=== PATIENT | female | born 1990 | race Caucasian/White ===

== ENCOUNTER 2018-01-17 07:23 | Emergency (ER) | payer OTHER ==
[~2018-01-17] VITALS: Ht 152.4 cm; Wt 71.4 kg
[2018-01-17 07:31] VITALS: Ht 152.4 cm; Wt 71.4 kg
[2018-01-17 08:53] LABS: BASOPHIL % 0.3 % (0-2); PLATELET COUNT 308 x10^3mcL (130-400); RED CELL DISTRIBUTION WIDTH 13.8 % (11.5-14.5)
[2018-01-17 08:54] LABS: CARBON DIOXIDE 26.7 mmol/L (21-32); CHLORIDE SERUM 106 mmol/L (98-107); CREATININE SERUM 0.7 mg/dL (0.6-1.0); GFR1 > 60 mL/min; GLUCOSE SERUM 103 mg/dL (74-106); POTASSIUM SERUM 3.7 mmol/L (3.5-5.1); SODIUM SERUM 141 mmol/L (136-145)
[2018-01-17 08:58] LABS: ALKALINE PHOSPHATASE 50 U/L (46-116); ALT/SGPT 28 U/L (14-59); AMYLASE 54 U/L (25-115); AST/SGOT 18 U/L (15-37); BILIRUBIN TOTAL 0.4 mg/dL (0.20-1.00); LIPASE 80 IU/L (73-393); TOTAL PROTEIN, SERUM 6.6 g/dL (6.4-8.2)
[2018-01-17 09:21] LABS: microscopic required? YES; urine erythrocyte 1+ (NEGATIVE)
[2018-01-17 10:16] VITALS: BP 111/71
== END 2018-01-17 10:16 | disposition home or self-care (01) ==
LOC: ED 07:23
PROVIDERS: Specialist
DX: O26.832 Pregnancy related renal disease, second trimester (principal); N23 Unspecified renal colic; Z3A.19 19 weeks gestation of pregnancy
CPT/HCPCS: J2550; J7030

== ENCOUNTER 2019-06-21 04:23 | Emergency (ER) | payer OTHER ==
[~2019-06-21] VITALS: Ht 152.4 cm; Wt 68.9 kg
[2019-06-21 04:26] VITALS: Ht 152.4 cm; Wt 68.9 kg
[2019-06-21 06:29] VITALS: BP 107/70
== END 2019-06-21 07:31 | disposition home or self-care (01) ==
LOC: ED 04:23
DX: N13.2 Hydronephrosis with renal and ureteral calculous obstruction (principal)
CPT/HCPCS: J1885; J2405

== ENCOUNTER 2019-08-13 16:20 | Emergency (ER) | payer OTHER ==
[~2019-08-13] VITALS: Ht 152.4 cm; Wt 68.5 kg
[2019-08-13 16:23] VITALS: BP 109/84; Ht 152.4 cm; Wt 68.5 kg
[2019-08-13 17:01] LABS: UA SPECIFIC GRAVITY >=1.030 (1.005-1.035); microscopic required? YES; urine erythrocyte 3+ (NEGATIVE)
[2019-08-13 17:05] LABS: BASOPHIL % 0.8 % (0-2); PLATELET COUNT 351 x10^3mcL (130-400); RED CELL DISTRIBUTION WIDTH 12.8 % (11.5-14.5)
[2019-08-13 17:08] LABS: CALCIUM 8.1 mg/dL (8.5-10.1); CARBON DIOXIDE 26.9 mmol/L (21-32); CHLORIDE SERUM 104 mmol/L (98-107); CREATININE SERUM 0.9 mg/dL (0.6-1.0); GFR1 > 60 mL/min; GLUCOSE SERUM 99 mg/dL (74-106); SODIUM SERUM 140 mmol/L (136-145)
[2019-08-13 17:13] LABS: ALKALINE PHOSPHATASE 94 U/L (46-116); ALT/SGPT 18 U/L (14-59); AST/SGOT 14 U/L (15-37); BILIRUBIN TOTAL 0.5 mg/dL (0.20-1.00); TOTAL PROTEIN, SERUM 7.7 g/dL (6.4-8.2)
== END 2019-08-13 18:43 | disposition home or self-care (01) ==
LOC: ED 16:20
PROVIDERS: Emergency Medicine
DX: N12 Tubulo-interstitial nephritis, not specified as acute or chronic (principal); Z87.442 Personal history of urinary calculi
CPT/HCPCS: 36415; Q9967

== ENCOUNTER 2020-05-02 08:27 | Emergency (ER) | payer OTHER ==
[~2020-05-02] VITALS: Ht 152.4 cm; Wt 67.1 kg
[2020-05-02 08:29] VITALS: Ht 152.4 cm; Wt 67.1 kg
[2020-05-02 09:08] LABS: BASOPHIL % 0.5 % (0-2); PLATELET COUNT 294 x10^3mcL (130-400); RED CELL DISTRIBUTION WIDTH 13.1 % (11.5-14.5)
[2020-05-02 11:05] VITALS: BP 115/73
== END 2020-05-02 11:32 | disposition home or self-care (01) ==
LOC: ED 08:27
PROVIDERS: Emergency Medicine
DX: O03.9 Complete or unspecified spontaneous abortion without complication (principal); Z87.442 Personal history of urinary calculi
CPT/HCPCS: Q0092